=== PATIENT | female | born 1950 ===

== ENCOUNTER 2018-02-24 07:59 | Day surgery (SDC) | payer OTHER ==
[2018-02-24 08:36] VITALS: BMI 22.6
[2018-02-24] MEDS ORDERED: Propofol 10 mg/ml Inj (20 ML) ONE (09:38)
[2018-02-24 13:48] VITALS: TEMP 98.3; O2SAT 100
[2018-02-24 14:11] VITALS: BP 108/76; PULSE 65; RESP 17
== END 2018-02-24 11:20 | disposition home or self-care (01) ==
LOC: C.ENDO 07:59
PROVIDERS: ATTEND Internal Medicine Gastroenterology
DX: Z12.11 Encounter for screening for malignant neoplasm of colon (principal); K64.1 Second degree hemorrhoids; K63.5 Polyp of colon; I10 Essential (primary) hypertension; M81.0 Age-related osteoporosis without current pathological fracture; Z79.82 Long term (current) use of aspirin; Z79.899 Other long term (current) drug therapy
CPT/HCPCS: 45380; 88305; J2704; J7040